=== PATIENT | female | born 1980 | race Asian ===

== ENCOUNTER 2016-11-29 21:38 | Inpatient (IN) | payer SELFPAY ==
[~2016-11-29] VITALS: Ht 164 cm; Wt 78.9 kg
[2016-11-29] MEDS ORDERED: LACTATED RINGERS 1,000 ML IV SCH (22:05)
[2016-11-29] MEDS ORDERED: IRON65TA11 PO (22:05)
[2016-11-29] MEDS ORDERED: METHYLERGONOVINE 0.2 MG/ML AMP IM PRN (22:05)
[2016-11-29] MEDS ORDERED: CARBOPROST 250 MCG/ML AMP IM PRN (22:05)
[2016-11-29] MEDS ORDERED: CITRIC ACID/SODIUM CITRATE 30 ML UDC PO PRN (22:10)
[2016-11-29] MEDS ORDERED: CLINDAMYCIN 900 MG in DEXTROSE 5% 100 ML IV PRN (22:30)
[2016-11-29 22:31] LABS: BASOPHILS % (AUTO) 0.5 % (0.0-2.0); EOSINOPHILS # (AUTO) 0.1 K/uL (0-0.4); EOSINOPHILS % (AUTO) 1.2 % (0.0-4.0); HEMATOCRIT 35.8 % (36-48); HEMOGLOBIN 11.8 g/dL (12.0-16.0); LYMPHOCYTES # (AUTO) 1.5 K/uL (2.5-16.5); LYMPHOCYTES % (AUTO) 23.9 % (20.5-51.1); MEAN CORPUSCULAR HEMOGLOBIN 30 pg (27-31); MEAN CORPUSCULAR HGB CONC 33 g/dL (33-37); MEAN CORPUSCULAR VOLUME 91 fL (80-94); MONOCYTES # (AUTO) 0.4 K/uL (0.8-1.0); MONOCYTES % (AUTO) 5.9 % (1.7-9.3); NEUTROPHILS # (AUTO) 4.2 K/uL (1.8-7.7); NEUTROPHILS % (AUTO) 68.5 % (42.2-75.2); PLATELET COUNT (AUTO) 179 K/uL (140-450); RED BLOOD CELL COUNT(AUTO) 3.95 MIL/uL (4.20-5.40); RED CELL DISTRIBUTION WIDTH 14.6 % (11.6-13.7); WHITE BLOOD COUNT (AUTO) 6.2 K/uL (4.8-10.8)
[2016-11-29 22:58] LABS: APPEARANCE,URINE SL CLOUDY (CLEAR); BILIRUBIN,URINE NEGATIVE (NEGATIVE); BLOOD, URINE NEGATIVE (NEGATIVE); COLOR,URINE YELLOW (YELLOW); LEUKOCYTE ESTERASE ,URINE NEGATIVE (NEGATIVE); NITRITE, URINE NEGATIVE (NEGATIVE); PROTEIN,URINE NEGATIVE (NEGATIVE); UGLUCOSE NEGATIVE (NEGATIVE); UROBILINOGEN,URINE 0.2 EU/dL (0.2 - 1)
[2016-11-29 23:02] LABS: HIV RAPID SCREEN NON-REACTIVE (NON REACTIV)
[2016-11-29 23:09] VITALS: BP 105/59
[2016-11-29] MEDS ORDERED: CITRIC ACID/SODIUM CITRATE 30 ML UDC ONE (23:32)
[2016-11-29] MEDS ORDERED: ceFAZolin 1,000 MG VIAL ONE (23:32)
[2016-11-29 23:44] LABS: RBC,URINE NONE SEEN /HPF (0-5)
[2016-11-29 23:45] LABS: BACTERIA,URINE None Seen /HPF (None Seen); SQUAMOUS EPITHELIAL CELL,UR 0-3 (FEW) /LPF (0-3 (FEW)); WBC,URINE 0-5 (RARE) /HPF (0-5)
[2016-11-30] MEDS ORDERED: ePHEDrine 50 MG/ML VIAL ONE (00:42)
[2016-11-30] MEDS ORDERED: OXYTOCIN 10 UNITS/ML VIAL ONE ×2 (00:42→00:59)
[2016-11-30] MEDS ORDERED: fentaNYL 0.05 MG/ML VIAL ONE (00:50)
[2016-11-30] MEDS ORDERED: CLINDAMYCIN 900 MG/6 ML VIAL IV ONE (00:50)
[2016-11-30] MEDS ORDERED: MORPHINE PRES FREE 10 MG/10 ML AMP IV ONE (00:51)
[2016-11-30] MEDS ORDERED: TRIAMCINOLONE 40 MG/ML 5ML VIAL ONE (00:58)
[2016-11-30] MEDS ORDERED: METHYLERGONOVINE 0.2 MG/ML AMP ONE (00:59)
[2016-11-30] MEDS ORDERED: KETOROLAC 60 MG/2 ML VIAL IM PRN (01:05)
[2016-11-30] MEDS ORDERED: ONDANSETRON 4 MG/2 ML VIAL IVP PRN ×2 (01:05)
[2016-11-30] MEDS ORDERED: NALBUPHINE 10 MG/ML AMP IVP PRN (01:05)
[2016-11-30] MEDS ORDERED: diphenhydrAMINE 50 MG/ML VIAL IVP PRN (01:05)
[2016-11-30] MEDS ORDERED: NALOXONE 0.4 MG/ML VIAL IVP PRN ×3 (01:05)
[2016-11-30] MEDS ORDERED: OXYTOCIN 20 UNITS/LR PREMIX 1,000 ML IV SCH (01:36)
[2016-11-30] MEDS ORDERED: SIMETHICONE 80 MG TAB.CHEW PO PRN (01:40)
[2016-11-30] MEDS ORDERED: TEMAZEPAM 15 MG CAP PO PRN (01:40)
[2016-11-30] MEDS ORDERED: MEASLES, MUMPS, AND RUBELLA 1 VIAL SQVAC PRN (01:40)
[2016-11-30] MEDS ORDERED: TRIMETHOBENZAMIDE 200 MG/2 ML SYR IM PRN (01:40)
[2016-11-30] MEDS ORDERED: METHYLERGONOVINE 0.2 MG/ML AMP IM PRN (01:40)
[2016-11-30] MEDS ORDERED: oxyCODONE/APAP 5/325 MG 1 TAB TAB PO PRN (01:40)
[2016-11-30] MEDS ORDERED: OXYTOCIN 20 UNITS/LR PREMIX 1,000 ML IV ONE (02:09)
--- NOTE | 2016-11-30 08:03 | NUR ---
PATIENT HAS BEEN SCREENED AND CATEGORIZED LOW NUTRITION RISK. PATIENT WILL BE SEEN WITHIN 7 DAYS OF ADMISSION. 12/06/[address]
[2016-11-30 12:50] LABS: RAPID PLASMA REAGIN NON-REACTIVE (Non Reactiv)
[2016-11-30] MEDS ORDERED: DOCUSATE SOD/SENNA 50/8.6 MG 1 TAB PO SCH (21:00)
[2016-12-01 06:39] LABS: BASOPHILS % (AUTO) 0.1 % (0.0-2.0); EOSINOPHILS # (AUTO) 0.2 K/uL (0-0.4); EOSINOPHILS % (AUTO) 1.4 % (0.0-4.0); HEMATOCRIT 30.9 % (36-48); HEMOGLOBIN 10.3 g/dL (12.0-16.0); LYMPHOCYTES # (AUTO) 0.9 K/uL (2.5-16.5); LYMPHOCYTES % (AUTO) 7.4 % (20.5-51.1); MEAN CORPUSCULAR HEMOGLOBIN 30 pg (27-31); MEAN CORPUSCULAR HGB CONC 33 g/dL (33-37); MEAN CORPUSCULAR VOLUME 90 fL (80-94); MONOCYTES # (AUTO) 0.6 K/uL (0.8-1.0); MONOCYTES % (AUTO) 5.1 % (1.7-9.3); NEUTROPHILS # (AUTO) 9.8 K/uL (1.8-7.7); PLATELET COUNT (AUTO) 188 K/uL (140-450); RED BLOOD CELL COUNT(AUTO) 3.43 MIL/uL (4.20-5.40); RED CELL DISTRIBUTION WIDTH 14.7 % (11.6-13.7); WHITE BLOOD COUNT (AUTO) 11.5 K/uL (4.8-10.8)
[2016-12-01] MEDS: HYDROcodone/APAP 5/325 MG 1 TAB TAB PO PRN ×3 (08:44→20:38)
[2016-12-01] MEDS: IBUPROFEN 800 MG TAB PO PRN (12:56)
[2016-12-02] MEDS: IBUPROFEN 800 MG TAB PO PRN ×2 (05:20→19:03)
[2016-12-02] MEDS: HYDROcodone/APAP 5/325 MG 1 TAB TAB PO PRN ×2 (09:34→13:47)
[2016-12-02] MEDS ORDERED: SODIUM PHOSPHATE 118 ML ENEM RC PRN (18:45)
== END 2016-12-02 21:02 | disposition home or self-care (01) | DRG 766 ==
LOC: MLD 21:38 → MFCC 11-30 02:24
PROVIDERS: ADMIT Obstetrics & Gynecology; ATTEND Obstetrics & Gynecology
PROC: 10D00Z1 Extraction of Products of Conception, Low, Open Approach (ICD-10-PCS; principal; 2016-11-30 00:45)
DX: O34.211 Maternal care for low transverse scar from previous cesarean delivery (principal); O34.593 Maternal care for other abnormalities of gravid uterus, third trimester; Z37.0 Single live birth; Z3A.39 39 weeks gestation of pregnancy
CPT/HCPCS: 36415; 81001; 85025; 86592; 86886; 86900; 86901; 90715; J0690; J1200; J2210; J2270; J2590; J3010; J3301; J3490; J7120